=== PATIENT | male | born 1995 | race Caucasian/White ===

== ENCOUNTER 2023-11-21 18:06 | Emergency (ER) | payer SELFPAY ==
--- NOTE | 2023-11-21 18:14 | ED_ITS ---
HPI - Fever General Chief Complaint: General Medical Stated Complaint: cc fever, chills, NVD x1, abnormal EKG Time Seen by Provider: 11/21/23 18:08 Source: patient and EMS Mode of arrival: EMS Limitations: no limitations History of Present Illness HPI Narrative: Patient sent from [facility] for tachycardia and fever. Poly mcdonoughmatheus did an ekg which just showed sinus tachycardia. Last alcohol use was 2 weeks ago MD elicited complaint: fever and weakness Onset (ago): hour(s) Context: sick contacts Related Data Allergies Allergy/AdvReac Type Severity Reaction Status Date / Time No Known Allergies Allergy Verified 11/21/23 18:18 Review of Systems Review of Systems: Yes all other systems are reviewed and are negative Neurologic: Denies Sensory deficit (Neuro) [facility] Social History Social History Advance Directives: No Advance Directives Information Provided: No Physical Exam Vital Signs: Vital Signs: Last Vital Signs Temp 99.6 F 11/21/23 19:23 Pulse 103 H 11/21/23 19:23 Resp 15 11/21/23 19:23 BP 101/42 L 11/21/23 19:23 Pulse Ox 95 11/21/23 19:23 O2 Del Method Room Air 11/21/23 19:23 BMI result Body Mass Index 18.6 Const: Other: 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 Nutritional Appearance: thin Orientation/consciousness: oriented to person and patient oriented x3 Limitations: no limitations HEENT: Other: 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 Head: Yes normal to inspection Ears: external ears normal General nose exam: Normal external nose present Mouth: Normal oral and palatal mucosa present and oropharynx normal Throat: Yes posterior oropharynx normal Eyes: General: appearance normal, both eyes and all related structures Neck: Other: supple Neck: Yes normal visual inspection Chest: Chest palpation & inspection: normal inspection of the chest Resp: Auscultation: clear to auscultation bilaterally Cardio: Jugular venous distension: no JVD Rate: tachycardic Heart sounds: S1 normal heart sound present and S2 normal heart sound present GI: Inspection: Yes normal to inspection Palpation (GI): Soft to palpation, nontender and No hepatosplenomegaly present Auscultation: normal bowel sounds : General: Yes no CVA tenderness Back/Spine/Pelvis: Back: no CVA tenderness Skin: General skin exam: no rashes or lesions noted Neuro: General: oriented to person and patient oriented x3 Cranial nerves: Yes CN's II-XII intact bilaterally Motor exam (neuro): 5/5 motor strength present throughout Sensory Exam: No Sensory deficit (Neuro) Extrem: Other: congenital abnormalities of hands Psych: Appearance: grossly normal Course Reevaluation(s) Reevaluation #1: patient with viral illness, repeat vitals taken by me were 105/70, 95, 14, pulse ox 96% temp 100.3. COVID, flu, rsv negative but patient with just hours of illness Time: 20:08 Medications Administered Discontinued Medications Generic Name Dose Route Start Last Admin Trade Name Freq PRN Reason Stop Dose Admin Acetaminophen 975 mg 11/21/23 18:26 11/21/23 18:32 Acetaminophen 325 Mg Tablet PO 11/21/23 18:27 975 mg ONCE ONE Administration Medical Decision Making Differential Diagnosis Differential Diagnoses: The differential diagnosis associated with the presentation includes (pneumonia, covid, influenza, rsv were considered, arrhythmia) Admission/Observation Consideration of admission/observation: Escalation of care including admission/observation considered (upon arrival patient was considered for admission) Lab Data Labs: Lab Results 11/21/23 Range/Units 18:33 Influenza Type A (PCR) NEGATIVE (Negative) Influenza Type B (PCR) NEGATIVE (Negative) RSV RNA Qual (PCR) NEGATIVE (Negative) SARS-CoV-2 RNA (RT-PCR) NEGATIVE (Negative) Independent Historian Clinical information obtained from an independent historian. History obtained from or confirmed by: EMS Tests considered The following testing was considered but not selected: CXR considered but lungs are clear and oxygen was normal Prescription Management I considered prescription management with: Antibiotic (no evidence of bacterial infection) Chronic Conditions Patient?s care impacted by: Other (psychiatric illnesss and alcohol dependence) Social Determinants Patient?s care significantly limited by Social Determinants of Health including: Alcoholism and drug addiction in family Discharge Plan Discharge Clinical Impression: Viral illness Patient Disposition: Home, Self-Care Instructions: Viral Syndrome (ED) Additional Instructions: alternate tylenol 1gm and motrin 800mg every 3 hours for fever Referrals: Physician,Acacia J [Primary Care Provider] - 5 days
[2023-11-21 18:19] VITALS: BP 102/70; BP 107/55; PULSE 102; PULSE 110; RESP 16; TEMP 37.9; O2SAT 98; O2SAT 99; BMI 18.6
[2023-11-21] MEDS: Acetaminophen 325 MG TABLET 975 MG PO (18:32)
--- NOTE | 2023-11-21 18:35 | PC.NURSE ---
pt medicated per provider order for fever. will reassess. swabs/obtained sent to lab. pt resting comfortably in no apparent distress at this time. respirations even and unlabored. 1:1 sitter present. plan of care ongoing. call lebron placed within reach.
[2023-11-21 19:16] LABS: Influenza A PCR NEGATIVE (Negative); Influenza B PCR NEGATIVE (Negative); Resp Syncy Virus RNA Qual PCR NEGATIVE (Negative); SARS COV2 PCR INHOUSE NEGATIVE (Negative)
[2023-11-21 19:23] VITALS: BP 101/42; PULSE 103; RESP 15; TEMP 37.6; O2SAT 95
--- NOTE | 2023-11-21 19:56 | PC.NURSE ---
pt's temperature continues to decrease at this time post medication administration. pt resting comfortably in no apparent distress. 1:1 sitter present. call lebron placed within reach.
[2023-11-21] MEDS: Ibuprofen 800 MG TABLET PO (20:52)
--- NOTE | 2023-11-21 20:53 | PC.NURSE ---
pt medicated per provider order. sitter remains present.
--- NOTE | 2023-11-21 21:19 | PC.NURSE ---
pt waiting for transportation back to [facility] at this time. ETA 2200 - pt aware. 1:1 sitter remains present.
--- NOTE | 2023-11-21 23:07 | PC.NURSE ---
report given to TAN Montemayor at [facility] at this pt. pt leaving facility via [place].
== END 2023-11-21 23:08 | disposition home or self-care (01) ==
PROVIDERS: Emergency Provider Emergency Medicine
DX: B34.9 Viral infection, unspecified (principal); Z11.52 Encounter for screening for COVID-19; Z20.828 Contact with and (suspected) exposure to other viral communicable diseases
CPT/HCPCS: 0241U; 99283; 99284